=== PATIENT | female | born 2000 | race Caucasian/White ===

== ENCOUNTER 2024-05-14 09:30 | Day surgery (SDC) | payer MEDICAID, SELFPAY ==
[2024-05-13 07:15] VITALS: BMI 32.8
[2024-05-13 08:55] LABS: HCG,Qualitative Serum Negative
[2024-05-13 09:07] LABS: Basophils # (Auto) 0.1 Thou/mm3 (0.0-0.2); Basophils % (Auto) 1 % (0-2.5); Eosinophils # (Auto) 0.2 Thou/mm3 (0.0-0.5); Eosinophils % (Auto) 3 % (0-10); Hematocrit 40.5 % (36.0-46.0); Immature Granulocytes % (Auto) 0 % (0-0); Immature Granulocytes Auto 0.02 Thou/mm3 (0.00-0.00); Lymphocytes # (Auto) 2.7 Thou/mm3 (1.0-4.8); Lymphocytes % (Auto) 31 % (10-50); Mean Corpuscular HGB Conc 34.6 g/dl (31.0-37.0); Mean Corpuscular Hemoglobin 30.2 pg (25.0-35.0); Mean Corpuscular Volume 88 fL (80-100); Monocytes # (Auto) 0.9 Thou/mm3 (0.0-0.8); Monocytes % (Auto) 10 % (0-12); Neutrophils % (Auto) 56 % (37-80); Nucleated Red Blood Cell % 0 /100 WBC (0); Platelet Count 385 Thou/mm3 (140-440); RDW Standard Deviation 40.3 fL (36.4-46.3); Red Blood Count 4.63 Miln/mm3 (4.00-5.20); White Blood Count 8.8 Thou/mm3 (3.6-11.0)
[2024-05-13 09:08] LABS: INR 1.1 (0.9-1.3); Partial Thromboplastin Time 26.8 Seconds (22.0-36.0); Prothrombin Time 11.8 Seconds (9.0-12.2)
[2024-05-13 09:12] LABS: Alanine Aminotransferase 23 U/L (10-49); Albumin, Serum 4.3 gm/dL (3.5-5.0); Albumin/Globulin Ratio 1.4 (1.2-2.2); Alkaline Phosphatase 71 U/L (46-116); Anion Gap 9 (7-16); Aspartate Amino Transferase 19 U/L (0-34); BUN/Creatinine Ratio 15 Ratio (12-20); Bilirubin,Total 0.5 mg/dL (0.3-1.2); Blood Urea Nitrogen 12 mg/dL (9-23); Calcium 9.5 mg/dL (8.3-10.6); Calcium (Corrected) 9.5 mg/dL (8.5-10.1); Carbon Dioxide 24.6 mMol/L (20.0-31.0); Chloride 103 mMol/L (98-107); Creatinine (Component) 0.8 mg/dL (0.6-1.3); Estimated Creatinine Clearance 128.3 mL/min (>60); Globulin 3.1 gm/dL (2.3-3.5); Glucose 94 mg/dL (74-106); Osmolality,Calculated 273 (275-295); Sodium 137 mMol/L (136-145); Total Protein 7.4 gm/dL (5.7-8.2); eGFR > 60 See Note
--- NOTE | 2024-05-13 14:39 | SUR.PREOP ---
Cardiac records reviewed with Dr Navarro.
[2024-05-14] VITALS (7 sets, daily range): BP systolic 104–126; BP diastolic 68–78; PULSE 75–92; RESP 12–20; TEMP 36.6–36.8; O2SAT 95–99; BMI 32.7
--- NOTE | 2024-05-14 09:17 | XR_ITS ---
Examination: Ultrasound soft tissue extremity TECHNIQUE: Sonographic images soft tissue upper medial left arm Exam date and time: May 14, 2024 1013 hours INDICATIONS: Location of control implant in the soft tissue preop FINDINGS: Echogenic Nexplanon implant noted in the soft tissue medial arm, 0.16 cm from the skin surface, measuring 2.2 cm IMPRESSION: Successful sonographic localization Nexplanon implant
[2024-05-14] MEDS: RINGERS LACTATED 1000 ML 1,000 ML 20 ML IV (10:14)
--- NOTE | 2024-05-14 10:51 | SUR.PREOP ---
Patient expressed gratitude for prayer before their procedure.
--- NOTE | 2024-05-14 13:26 | SUR.PHASEII ---
1326 Receive pt to PACU from OR, pt is wide awake, no complaint of pain or N/V. Dressing to LUE CDI. Radial pulses strong and palp. VSS. Enc. TC&DB. Monitor.
--- NOTE | 2024-05-14 13:27 | ESOP_ITS ---
Date of Procedure 05/14/24 Pre Op Diagnosis Implanted foreign body left upper arm, Nexplanon Post Op Diagnosis Same Procedure Removal of Nexplanon from the left upper arm Findings Patient was found to have linear foreign body located right underneath the skin Procedure Description After the patient was seen in flex care preoperative area and process development technician localized this Nexplanon to be located very close to the skin. Patient was then taken to the operating room and given monitored anesthesia with sedation. Then her entire left arm was prepped with ChloraPrep solution and draped in a sterile manner. I used tourniquet with a [place] drain E above the location of the foreign body. Timeout is performed. Then I made a small incision about a centimeter in length and subcutaneous tissue was divided. The foreign body was easily seen and it was pulled out. Skin edges were closed with two 5-0 nylon stitches and 4 x 4 dressing was applied. Patient tolerated procedure well. Anesthesia MAC Pathology / specimen None Estimated Blood Loss 5 Surgeon Dipak Cleary MD Surgical Staff Operation Date: 05/14/24 13:15 <No data on this case meets the specified criteria>
--- NOTE | 2024-05-14 14:04 | SUR.PHASEII ---
1404 Pt VSS, denies and pain, dressing to LUE CDI, pt tolerating PO fluids, states she's ready to go home. at BS, DC teaching done, questions answered. Pt up and able to dress with husbands assistance. DC home via W/C to car at curb. Pt tolerated well.
--- NOTE | 2024-05-14 14:04 | SUR.PHASEII ---
1404 patient sitting up and tolerating PO, denies pain or n/v, dressing to LUE CDI. Pt states she's ready to go home. at , DC teaching done, questions answered. Pt able to dress self with assist. DC home via W/C to car at curb. Pt tolerated well
== END 2024-05-14 14:04 | disposition home or self-care (01) ==
PROVIDERS: PCP Family Medicine; Referring Provider Surgery; Visit Provider Surgery
PROC: (CPT 11982; principal; 2024-05-14 13:00)
DX: Z30.46 Encounter for surveillance of implantable subdermal contraceptive (principal)
CPT/HCPCS: 11982; 36415; 76882; 80053; 84703; 85025; 85610; 85730; A4217; A4649; J2250; J2704; J3010; J7120

== ENCOUNTER → 2024-08-12 | Outpatient (CLI) | payer MEDICAID, SELFPAY ==
--- NOTE | 2024-08-12 12:09 | XR_ITS ---
Examination: Complete OB ultrasound, less than 14 weeks, transabdominal Date and time of exam: August 12, 2024 at 1231 hours INDICATIONS: Vaginal bleeding beginning 3 days ago Technique: Obstetrical ultrasound images less than 14 weeks performed via transabdominal imaging Findings: Uterus 7.0 cm endometrial stripe 0.1 cm No uterine mass or intrauterine gestation Ovaries obscured by bowel gas IMPRESSION: Limited study No uterine mass or intrauterine gestation
== END | disposition home or self-care (01) ==
PROVIDERS: PCP Nurse Practitioner Family; Referring Provider Nurse Practitioner Family; Visit Provider Nurse Practitioner Family
DX: R89.1 Abnormal level of hormones in specimens from other organs, systems and tissues (principal)
CPT/HCPCS: 76801

== ENCOUNTER → 2024-12-03 | Outpatient (CLI) | payer MEDICAID, SELFPAY ==
--- NOTE | 2024-12-03 12:30 | XR_ITS ---
Examination: Breast ultrasound, unilateral, left complete Date and time of exam: December 03, 2024, 1231 hours INDICATIONS: Patient states palpable lump upper left breast noticed beginning 6 weeks ago, family history of breast cancer Technique: Real-time concepcion scale ultrasonographic imaging performed left breast including all 4 quadrants as well as nipple retroareolar and axillary region. Findings: 7:00 cyst 5 x 6 mm No solid nodules IMPRESSION: BI-RADS Category 2: Benign findings
== END | disposition home or self-care (01) ==
PROVIDERS: PCP Nurse Practitioner Family; Referring Provider Nurse Practitioner Family; Visit Provider Nurse Practitioner Family
DX: R92.322 Mammographic fibroglandular density, left breast (principal); Z80.3 Family history of malignant neoplasm of breast
CPT/HCPCS: 76641

== ENCOUNTER 2025-02-09 10:50 | Emergency (ER) | payer MEDICAID, SELFPAY ==
[2025-02-09 11:23] VITALS: BP 108/67; PULSE 123; RESP 18; TEMP 38.1; O2SAT 99; BMI 32.1
--- NOTE | 2025-02-09 11:30 | XR_ITS ---
EXAMINATION: PA lateral chest 2 views TECHNIQUE: Upright PA lateral chest 2 views Date and time: February 09, 2025, 1156 hours INDICATION: Chest pain coughing beginning 3 weeks ago. FINDINGS: Accentuation basilar bronchovascular markings Nodule in the left lower lobe which appears calcified, 15 mm Normal heart size Intact osseous structures IMPRESSION: Basilar bronchitis pattern 15 mm probable granuloma left lower lobe, recommend 3-month follow-up PA chest
[2025-02-09 11:34] VITALS: TEMP 38.1
[2025-02-09] MEDS: ACETAMINOPHEN 500 MG TABLET 1000 MG PO (11:34)
--- NOTE | 2025-02-09 12:38 | EDNOTE_ITS ---
<Statement entered by Lavinia Pineda MD - 02/24/25 17:52> As co-signing physician, I was present and available for consult prn. I concur with the plan and care as documented by the midlevel provider. Upper Respiratory Inf. RME/HPI General Chief Complaint: Flu Like Symptoms Stated Complaint: COUGH X 3 DAYS Time Seen by Provider: 02/09/25 11:30 Arrival date/time: 02/09/25 10:50 24-year-old female presents to the Emergency Department for complaint of cough, congestion runny nose ongoing x 3 days. Patient reports no fever nausea vomiting Limitations: no limitations Related Data Home Medications ?Medication ?Instructions ?Recorded ?Confirmed paroxetine HCl 20 mg tablet 20 mg PO DAILY 05/13/24 Previous Rx's ?Medication ?Instructions ?Recorded acetaminophen 500 mg capsule 1,000 mg (2 x 500 mg) PO Q8HR PRN 02/09/25 pain #30 caps azithromycin 500 mg tablet See Rx Instructions PO .COM PLEX #6 02/09/25 tabs benzonatate 100 mg capsule 100 mg PO TID #14 caps 01/24 09/17 prednisone 10 mg tablet 30 mg (3 x 10 mg) PO BID 3 d ays 02/09/25 #18 tabs Allergies Allergy/AdvReac Type Severity Reaction Status Date / Time omeprazole Allergy Severe Vomiting Verified 02/09/25 10:50 buspirone (From BuSpar) Allergy Hallucinati Verified 02/09/25 10:50 ng Review of Systems Review of Systems Systems Reviewed: All systems reviewed, normal except as documented Constitutional Constitutional: Reports system reviewed and no additional complaints, except as documented, Denies fever(s) and Denies headache(s) Eyes Eyes: Reports system reviewed and no additional complaints, except as documented and Denies blurry vision ENT Ears, Nose, Mouth, and Throat: Reports system reviewed and no additional complaints, except as documented, Denies headache(s), Reports nasal congestion and Reports nasal discharge Cardiovascular Cardiovascular: Reports system reviewed and no additional complaints, except as documented, Denies chest pain and Denies dyspnea Respiratory Respiratory: Reports system reviewed and no additional complaints, except as documented, Reports chest congestion, Reports cough and Denies dyspnea Gastrointestinal Gastrointestinal: Reports system reviewed and no additional complaints, except as documented and Denies abdominal pain Integumentary/Breasts Skin/Breast: Reports system reviewed and no additional complaints, except as documented and Denies rash Neurologic Neurologic: Reports system reviewed and no additional complaints, except as documented, Reports as per HPI and Denies headache(s) Past Medical History Past Medical History NEUROLOGIC: Positive Neurological Disorders and Migraine; Negative Cerebrovascular Accident, Alzheimer's Disease, Meningitis or Seizures CARDIAC: Positive Cardiac Disorders (POTS, diagnosed 3 yrs ago) and Hypotension; Negative Myocardial Infarction, Angina, Atherosclerotic Heart Disease or Congestive Heart Failure RESPIRATORY: Negative Chronic Obstructive Pulmonary Disease (COPD) or Emphysema GASTROINTESTINAL: Positive Ulcer; Negative Gastrointestinal Disorders, Liver Cancer, Hepatitis or Pancreatic Cancer GENITOURINARY: Negative Genitourinary Disorders or Renal Disease REPRODUCTIVE: Positive Previous Pregnancies MUSCULOSKELETAL: Negative Musculoskeletal Disorders ENT: Negative Blind or Deafness ENDOCRINE: Negative Endocrine Disorders, Diabetes Mellitus Type 1 or Diabetes Mellitus Type 2 HEMATOLOGIC: Negative Blood Disorders PSYCHO/SOCIAL: Positive Anxiety OTHER HISTORY: Negative Hospitalization, Autoimmune Disease, Down Syndrome, Developmental Delay, Shingles, Blood Transfusions, Anesthesia Reactions or Cancer Family History FAMILY HISTORY: Positive Family Psychiatric Problems, Family Respiratory Disorders and Family Surgery; Negative Family Cardiac Disorders, Family Gastrointestinal Problems, Family Cancer or Family Anesthesia Reaction Social History SMOKING STATUS: Current some day smoker ED Exam General Limitations: Present no limitations General appearance: Present alert and in no apparent distress Head Head exam: Present atraumatic, normocephalic and normal inspection Eye Eye exam: Present normal appearance, PERRL and EOMI; Absent conjunctival injection ENT ENT exam: Present normal exam, normal oropharynx and mucous membranes moist Neck Neck exam: Present normal inspection, full ROM and trachea midline Chest Chest inspection: Present normal inspection and symmetric chest wall rise Respiratory Respiratory exam: Present normal lung sounds bilaterally; Absent respiratory distress, wheezes, stridor, accessory muscle use or prolonged expiratory phase Cardiovascular Cardiovascular exam: Present regular rate, normal rhythm and normal heart sounds Abdominal Exam Abdominal exam: Present soft and normal bowel sounds; Absent distention, tenderness, guarding, rebound or rigidity Extremities Exam Extremities exam: Present normal inspection and full ROM Back Exam Back exam: Present normal inspection and full ROM Neurological Exam Neurological exam: Present alert, oriented X3 and CN II-XII intact Psychiatric Psychiatric exam: Present normal affect and normal mood Skin Skin exam: Present warm, dry, intact and normal color Course Quality Measures none Orders Category Date Time Status Bedside COVID-19 Antigen Test NOW Care 02/09/25 11:30 Completed XR chest 2V Stat Exams 02/09/25 11:30 Completed Acetaminophen Tab [Tylenol ES Tab] Med 02/09/25 11:30 Discontinued 1,000 mg PO X1 ONE Vital Signs Vital signs: Vital Signs Temperature 100.5 F H 02/09/25 11:23 Pulse Rate 123 H 02/09/25 11:23 Respiratory Rate 18 02/09/25 11:23 Blood Pressure 108/67 02/09/25 11:23 Pulse Oximetry (%) 99 02/09/25 11:23 Oxygen Delivery Method Room Air 02/09/25 11:23 O2 saturation 99% room air within normal limits Upper Respiratory Infection MDM Narrative MDM Narrative:: 24-year-old female presents to the Emergency Department for complaint of cough, congestion runny nose ongoing x 3 days. Patient reports no fever nausea vomiting Despite having a fever patient does not appear ill or toxic Imaging obtained consistent with bronchitis patient also have an incidental pulmonary nodule/granuloma Patient given copy of x-ray report instructed to bring this to her primary care doctor request outpatient x-ray next 3 months or to return here for repeat x-rays Time reevaluation patient well-appearing Patient discharged home with cough medicine, antibiotics, steroids. Explained to the patient as her symptoms persist or worsen she is instructed return for evaluation Patient data External records reviewed:: [facility] previous records Clinical information provided by:: patient Social determinants that could affect healthcare access:: none Patient has the following chronic illnesses:: None How is presenting disease/condition affected by chronic disease/condition?: no chronic disease Evaluation data The following diagnostics were reviewed and interpreted by me:: lab results and radiology exam(s) Lab and/or radiology exams considered but not ordered:: Labs radiology obtained Interpretation Summary: Reviewed by me Medications / Prescriptions Medications or Prescriptions considered but not ordered:: Given Medication administrations:: Medication Administration History Discontinued Medications Acetaminophen (Acetaminophen 500 Mg Tablet) 1,000 mg PO X1 ONE Stop: 02/09/25 11:31 Last Admin: 02/09/25 11:34 Dose: 1,000 mg Documented By: OA Given Consultations Consultation(s) initiated? (list below): No Diagnosis Upper Respiratory Differential Diagnosis: upper respiratory infection, otitis media, sinusitis, viral infection and bronchitis Most likely diagnosis given after review of the tests above:: Bronchitis, granuloma Admission Indicated Admission indicated?: not indicated Admission Request Was there a request for admission?: No Disposition Plan Disposition Plan: Discharge Discharge Attestation Discharge Attestation: The patient and all family members were given an opportunity to ask questions and understood the discharge instructions. Discharge instructions specifically effects, indications for sooner follow up or return to the emergency department, and the expected course of current diagnosis. Patient condition: Stable Discharge Plan Plan Patient Disposition: HOME (Self Care) Discharge Disposition comment: Stable Prescriptions/Referrals Prescriptions/Med Rec: New prednisone 10 mg tablet 30 mg PO BID 3 Days Qty: 18 0RF benzonatate 100 mg capsule 100 mg PO TID Qty: 14 0RF acetaminophen 500 mg capsule 1,000 mg PO Q8HR PRN (Reason: pain) Qty: 30 0RF azithromycin 500 mg tablet See Rx Instructions .ROUTE .COMPLEX Qty: 6 0RF Rx Instructions: take 500 mg today (day 1), then 250 mg for 4 days (days 2-5) No Action paroxetine HCl 20 mg tablet 20 mg PO DAILY Patient Comments: TAKE 1 TABLET BY MOUTH EVERY DAY Referrals: Jade Bailon, [employer]ING MACHINE OPERATOR [Primary Care Provider] - In 1 week Problem List Clinical Impression: Bronchitis, Abnormal chest x-ray Patient/Caregiver Discharge Instructions Education Materials: ED Upper Resp Infec Abx Tx Additional Instructions: Please follow up with your primary care doctor in the next 24-48hrs for any worsening symptoms return here immediately I gave you a copy of your x-ray report please bring your PCP request outpatient x-ray 3 months for worsening symptoms return immediately Print Language: Estonian Stand Alone Forms: Sylvie Award Info., Work/School Release, Patient Portal Info Letter PORSCHE/AYLEEN Supervising Physician PORSCHE/AYLEEN Supervising Physician: Dr. pineda
[2025-02-09 12:43] VITALS: TEMP 37.3
[2025-02-09 13:22] VITALS: BP 124/82; PULSE 89; RESP 16
== END 2025-02-09 12:44 | disposition home or self-care (01) ==
PROVIDERS: Emergency Provider Emergency Medicine; PCP Nurse Practitioner Family
DX: J40 Bronchitis, not specified as acute or chronic (principal); R91.8 Other nonspecific abnormal finding of lung field; F17.290 Nicotine dependence, other tobacco product, uncomplicated
CPT/HCPCS: 71046; 87635; 99283; A9270